=== PATIENT | male | born 1950 | race Caucasian/White ===

== ENCOUNTER 2020-07-28 07:57 | Day surgery (SDC) | payer MEDICARE, BC ==
[2020-07-28] MEDS ORDERED: Sodium Chloride 0.9% 10 ML Syringe FLUSH PRN (08:00)
[2020-07-28] MEDS: Lactated Ringers 1,000 ML IV SCH (08:15)
[2020-07-28] MEDS ORDERED: Midazolam 1 MG/ML 2 ML SDV ONE (08:44)
[2020-07-28] MEDS ORDERED: Glycopyrrolate 0.2 MG/ML SDV ONE (08:45)
[2020-07-28] MEDS ORDERED: Propofol 200 MG/20 ML SDV ONE ×2 (08:45→09:51)
[2020-07-28] MEDS ORDERED: Lactated Ringers 1,000 ML ONE (09:30)
--- NOTE | 2020-07-28 10:48 | PCM.PRNOTE ---
- Free Text/Narrative Note: PROCEDURES PERFORMED: A) Esophagogastroduodenoscopy with biopsy B) Colonoscopy with polypectomy PRE-PROCEDURE DIAGNOSIS/INDICATION FOR PROCEDURE: A) Persistent epigastric pain despite PPI use B) +FIT (02/13/18), no history of prior colorectal cancer screening or colonoscopy CONSENT: Informed consent was obtained prior to the procedure after discussion of the risks (including pain, bleeding, infection, perforation, missed polyps, inability to completely remove polyps or complete procedure necessitating repeat endoscopy, adverse reaction to anesthesia, cardiovascular event), benefits and alternatives and expected outcomes. The patient expressed understanding and wished to proceed. Verbal consent given and consent form signed. PROCEDURAL PAUSE: Completed SEDATION: Per anesthesia DESCRIPTION OF PROCEDURES: Patient was brought back to the operating room and placed in a left lateral decubitus position. A) Bite block placed. After adequate sedation and anesthetic was administered, endoscope was inserted into the patient's mouth and was passed easily through the esophagus and stomach into the duodenum without difficulty. Examined duodenum normal appearing. Pylorus normal appearing and distal stomach with superficial gastritis and old blood adherent to wall; biopsies with cold forceps obtained. Stomach views in retroflexion without abnormality. 6 cm hiatal hernia was present with the gastroesophageal junction at 37 cm from the incisors and diaphragmatic pinch at 43 cm from the incisors. Esophagus with mild distal esophagitis; 4 quadrant biopsies obtained. The scope was removed without difficulty. Patient tolerated the procedure well. No complications. B) Attention then directed to colonoscopy. A rectal exam was performed revealing anterior firmness consistent with prior prostatectomy. Incidentally noted was large R hemiscrotum, for which history notable for chronic enlargement and prior ultrasound with large R hydrocele. A lubricated Olympus Video Colonoscope was inserted into the rectum and air insufflation was performed. The colonoscope was advanced through the rectum, sigmoid, descending, transverse, and ascending colon without difficulties. The cecum was reached and the ileocecal valve as well as the appendiceal orifice were identified and pictorially documented. Af ter adequate visualization of the cecum, the scope was withdrawn, giving 360- degree views of the colonic mucosa and retroflexion was performed in the rectum with the following findings noted: Ileocecal valve: Normal Cecum: Normal Ascending colon: Normal Hepatic flexure: Normal Transverse colon: Normal Splenic flexure: Normal Descending colon: At 70cm, one <0.5cm polyp removed with cold forceps Sigmoid colon: At 45cm, two 0.6cm polyps removed with hot snare Rectum: At 15cm, two 0.8cm polyps removed with hot snare; At 13cm,, one 1cm pedunculated polyp removed with hot snare. All polypectomy sites noted to have subsequent complete polypoid tissue removal and hemostasis noted without significant defect in mucosa. The scope was straightened, air suction performed, and the scope withdrawn without complication. Preparation adequacy Mcallen Bowel Score 8/9. IMPRESSION: Esophagogastroduodenoscopy performed revealing: - Superficial gastritis with history of prior bleeding (none active), biopsies obtained and pathology now pending - Distal esophagitis, biopsies obtained and pathology now pending - 6 cm hiatal hernia Colonoscopy performed revealing - Six polyps of the left side of the colon, all removed completely with pathology pending PLAN: Will see patient in clinic in 7-10 days to review pathology results and recommendations for future endoscopies.
[2020-07-28 12:09] VITALS: BP 153/81; PULSE 82
== END 2020-07-28 13:00 | disposition home or self-care (01) ==
LOC: KA.SDS 07:57
PROVIDERS: ATTEND Family Medicine
DX: D12.5 Benign neoplasm of sigmoid colon (principal); D12.8 Benign neoplasm of rectum; K31.89 Other diseases of stomach and duodenum; K44.9 Diaphragmatic hernia without obstruction or gangrene; K20.90 Esophagitis, unspecified without bleeding; I10 Essential (primary) hypertension; J43.8 Other emphysema; G89.29 Other chronic pain; K21.9 Gastro-esophageal reflux disease without esophagitis; F17.210 Nicotine dependence, cigarettes, uncomplicated; Z79.899 Other long term (current) drug therapy; Z88.0 Allergy status to penicillin; Z88.8 Allergy status to other drugs, medicaments and biological substances; Z98.890 Other specified postprocedural states
CPT/HCPCS: 00813; 43239; 45380; 45385; J2250; J2704; J3490; J7120

== ENCOUNTER 2025-01-01 09:52 | Day surgery (SDC) | payer BC, MEDICARE ==
[2025-01-01] MEDS ORDERED: Sodium Chloride 0.9% 10 ML Syringe FLUSH PRN (10:00)
[2025-01-01] MEDS: Lactated Ringers 1,000 ML IV SCH (10:19)
[2025-01-01] MEDS ORDERED: Midazolam 1 MG/ML 2 ML SDV ONE (10:44)
[2025-01-01] MEDS ORDERED: Propofol 200 MG/20 ML SDV ONE (10:44)
[2025-01-01 13:34] VITALS: BP 124/71; PULSE 69
== END 2025-01-01 13:29 | disposition home or self-care (01) ==
LOC: KA.SDS 09:52
PROVIDERS: ATTEND Family Medicine
DX: Z12.11 Encounter for screening for malignant neoplasm of colon (principal); D12.8 Benign neoplasm of rectum; C15.9 Malignant neoplasm of esophagus, unspecified; K29.71 Gastritis, unspecified, with bleeding; K44.9 Diaphragmatic hernia without obstruction or gangrene; K57.30 Diverticulosis of large intestine without perforation or abscess without bleeding; K64.8 Other hemorrhoids; I10 Essential (primary) hypertension; F17.210 Nicotine dependence, cigarettes, uncomplicated; Z88.0 Allergy status to penicillin; Z88.8 Allergy status to other drugs, medicaments and biological substances; Z90.79 Acquired absence of other genital organ(s); Z79.899 Other long term (current) drug therapy; Z86.0101 Personal history of adenomatous and serrated colon polyps
CPT/HCPCS: 00813; 88305; 88341; 88342; 88360; 94640; 99100; A9270-GY; J1596; J2250; J2704; J7120